=== PATIENT | male | born 1985 | race Caucasian/White ===

== ENCOUNTER 2023-03-13 11:50 | Emergency (ER) | payer OTHER, SELFPAY ==
[2023-03-13 12:55] LABS: Absolute Lymphocytes (CBC) 1.3 K/uL (0.7-4.9); Hematocrit 46.3 % (39.6-49.0); Lymphocytes % 21.9 % (15.3-44.8); MCV 90.4 fL (80-100); MPV 9.3 fL (7.6-11.3); RBC Red Blood Cell Count 5.12 M/uL (4.33-5.43)
[2023-03-13 13:19] LABS: Albumin 4.3 g/dL (3.4-5.0); Bilirubin Total 0.6 mg/dL (0.2-1.0); Protein, Total 8.2 g/dL (6.4-8.2); Thyroid Stimulating Hormone 0.815 uIU/mL (0.358-3.740); Troponin High Sensitivity 4.2 pg/mL (<58.9)
--- NOTE | 2023-03-13 13:33 | EDPHYS ---
Physician Documentation [facility] Name: Osito Zaomrano Age: 37 yrs Sex: Male : 1985 Arrival Date: 03/13/2023 Time: 11:50 Bed 12 Private MD: ED Physician Pietro Subramanian HPI: 03/13 12:16 This 37 yrs old Male presents to ER via Ambulatory with complaints of Passed bs3 Out Prior To Arrival, Irregular heartbeat. 12:16 37-year-old male no past medical history presents after an episode of syncope at work bs3 he was standing and passed out he went to [place] where they found him to have an irregular heart beat they did not do anything did not get an EKG and told him to come here he denies any chest pain shortness of breath or anything else bothering him, he does note drinking approximately 10 drinks on Sunday. . Historical: - Allergies: 12:29 No Known Allergies; vg1 - Home Meds: 12:29 None [Active]; vg1 - PMHx: 12:29 None; vg1 - PSHx: 12:29 None; vg1 - Immunization history:: Client reports having NOT received the Covid vaccine. - Social history:: Smoking status: Patient denies any tobacco usage or history of. ROS: 12:16 Constitutional: Negative for fever, chills bs3 12:16 All other systems are negative. Exam: 12:16 Constitutional: This is a well developed, well nourished patient who is awake, alert, bs3 and in no acute distress. Head/Face: Normocephalic, atraumatic. Eyes: Pupils equal round and reactive to light, extra-ocular motions intact. Lids and lashes normal. ENT: mmm, no posterior phyarngeal erythema Neck: Trachea midline, no thyromegaly, no neck stiffness Chest/axilla: Normal chest wall appearance and motion. Nontender with no deformity. No lesions are appreciated. Cardiovascular: Irregularly irregular no murmur Respiratory: Lungs have equal breath sounds bilaterally, clear to auscultation, no respiratory distress Abdomen/GI: Soft, non-tender, no rebound or guarding Skin: Warm, dry with normal turgor. Normal color with no rashes, no lesions, and no evidence of cellulitis. MS/ Extremity: Pulses equal, no cyanosis. Neurovascular intact. Full, normal range of motion. Neuro: Awake and alert, GCS 15, oriented to person, place, time, and situation. Cranial nerves II-XII grossly intact. Motor strength 5/5 in all extremities. Sensory grossly intact. Psych: Awake, alert, with orientation to person, place and time. Behavior, mood, and affect are within normal limits. 12:54 Normal sinus rhythm with frequent PVC as interpreted by myself bs3 Vital Signs: 12:26 BP 151 / 78; Pulse 43; Resp 16; Temp 98.5(O); Pulse Ox 97% on R/A; Weight 108.86 kg; vg1 Height 6 ft. 0 in. ; 14:18 BP 122 / 75; Pulse 68; Resp 17; Pulse Ox 100% ; ap3 12:26 Body Mass Index 32.55 (108.86 kg, 182.88 cm) vg1 MDM: 12:00 Patient medically screened. bs3 12:16 Data reviewed: vital signs, nurses notes. ED course: Patient with irregular heart beat bs3 in the setting of syncope will place on monitor we will get labs possible holiday heart if in A-fib [id number] 0. 13:22 ED course: labs neg for acute pathology, pt with symptomatic vent bigeminy, will start bs3 on metoprolol, f/u with cardiology. 13:24 ED course: tele shows ventricular trigeminy at 1:24p. bs3 03/13 12:13 Order name: CBC with Diff; Complete Time: 13:11 bs3 03/13 12:13 Order name: Comprehensive Metabolic Panel; Complete Time: 13:19 bs3 03/13 12:13 Order name: TSH; Complete Time: 13:19 bs3 03/13 12:13 Order name: Troponin High Sensitivity; Complete Time: 13:19 bs3 03/13 12:01 Order name: EKG - Nurse/Tech; Complete Time: 12:35 bs3 03/13 12:13 Order name: Cardiac monitoring; Complete Time: 12:49 bs3 Administered Medications: No medications were administered Disposition Summary: 03/13/23 13:32 Discharge Ordered Location: Home bs3 Problem: new bs3 Symptoms: are unchanged bs3 Condition: Stable bs3 Diagnosis - Ventricular premature depolarization bs3 - Syncope Near bs3 Followup: bs3 - With: Dionicio Willams MD - When: 1 - 2 days - Reason: Re-evaluation by your physician Discharge Instructions: - Discharge Summary Sheet bs3 - Premature Ventricular Contraction bs3 Forms: - Medication Reconciliation Form bs3 - Thank You Letter bs3 - Antibiotic Education bs3 - Prescription Opioid Use bs3 Prescriptions: - Toprol XL 25 mg Oral Tablet - take 1 tablet by ORAL route once daily; 20 tablet; Refills: 0, Product bs3 Selection Permitted Signatures: Dispatcher [employer] Radha Martinez, RN RN vg1 Pietro Subramanian MD MD bs3
--- NOTE | 2023-03-13 13:33 | ER ---
Nurse's Notes [facility] Name: Osito Zamorano Age: 37 yrs Sex: Male : 1985 Arrival Date: 03/13/2023 Time: 11:50 Bed 12 Private MD: Diagnosis: Ventricular premature depolarization;Syncope Near Presentation: 03/13 12:26 Chief complaint: Spouse and/or significant other states: walking and fell at work, vg1 stated fell forward and caught self, denies hitting head. Feels weak, dizzy, lightheaded. Coronavirus screen: Vaccine status: Patient reports being unvaccinated. Client denies travel out of the [place] in the last 14 days. Ebola Screen: Patient negative for fever greater than or equal to 101.5 degrees Fahrenheit, and additional compatible Ebola Virus Disease symptoms Patient denies exposure to infectious person. Patient denies travel to an Ebola-affected area in the 21 days before illness onset. Initial Sepsis Screen: Does the patient meet any 2 criteria? No. Patient's initial sepsis screen is negative. Does the patient have a suspected source of infection? No. Patient's initial sepsis screen is negative. Risk Assessment: Do you want to hurt yourself or someone else? Patient reports no desire to harm self or others. Onset of symptoms was March 13, 2023. 12:26 Method Of Arrival: Ambulatory vg1 12:26 Acuity: FRANCISCO 3 vg1 Triage Assessment: 12:29 General: Appears uncomfortable, Behavior is cooperative. Pain: Denies pain. Neuro: vg1 Level of Consciousness is awake, alert, obeys commands, Oriented to person, place, time, situation. Cardiovascular: Reports fatigue, lightheadedness, palpitations, syncope, Denies chest pain, Patient's skin is warm and dry. Historical: - Allergies: 12:29 No Known Allergies; vg1 - Home Meds: 12:29 None [Active]; vg1 - PMHx: 12:29 None; vg1 - PSHx: 12:29 None; vg1 - Immunization history:: Client reports having NOT received the Covid vaccine. - Social history:: Smoking status: Patient denies any tobacco usage or history of. Screenin:50 [facility] ED Fall Risk Assessment (Adult) History of falling in the last 3 months, ap3 including since admission No falls in past 3 months (0 pts). Abuse screen: Denies threats or abuse. Nutritional screening: No deficits noted. Tuberculosis screening: No symptoms or risk factors identified. Assessment: 12:49 General: Appears in no apparent distress. Behavior is calm, cooperative, appropriate ap3 for age. Pain: Denies pain. Neuro: Level of Consciousness is awake, alert, obeys commands, Oriented to person, place, time, situation, Reports a syncopal episode [employer]. Cardiovascular: Patient's skin is warm and dry. Rhythm is sinus rhythm w/ PVCs. Vital Signs: 12:26 BP 151 / 78; Pulse 43; Resp 16; Temp 98.5(O); Pulse Ox 97% on R/A; Weight 108.86 kg; vg1 Height 6 ft. 0 in. ; 14:18 BP 122 / 75; Pulse 68; Resp 17; Pulse Ox 100% ; ap3 12:26 Body Mass Index 32.55 (108.86 kg, 182.88 cm) vg1 ED Course: 11:53 Patient arrived in ED. rg4 12:00 Pietro Subramanian MD is Attending Physician. bs3 12:29 Triage completed. vg1 12:29 Arm band placed on. vg1 12:36 EKG done, by ED staff, reviewed by Pietro Subramanian MD. ap3 12:49 Tricia Rees, CAROLIN is Primary Nurse. ap3 12:49 Initial lab(s) drawn, by pa, sent to lab. Inserted saline lock: 20 gauge in right ap3 antecubital area, using aseptic technique. Blood collected. 13:31 Dionicio Willams MD is Referral Physician. bs3 14:17 No provider procedures requiring assistance completed. IV discontinued, intact, ap3 bleeding controlled, No redness/swelling at site. Pressure dressing applied. 14:19 Patient has correct armband on for positive identification. Call light in reach. Adult ap3 w/ patient. Administered Medications: No medications were administered Medication: 12:50 VIS not applicable for this client. ap3 Outcome: 13:32 Discharge ordered by . bs3 14:18 Discharged to home ambulatory, with family. ap3 14:18 Condition: good 14:18 Discharge instructions given to patient, family, Instructed on discharge instructions, follow up and referral plans. medication usage, Demonstrated understanding of instructions, follow-up care, medications, Prescriptions given X 1. 14:19 Patient left the ED. ap3 Signatures: Delmy Mckenna Amanda, RN RN ap3 Radha Mckenna RN RN vg1 Pietro Subramanian MD MD bs3
[2023-03-13 14:37] VITALS: TEMP 98.5
[2023-03-13 14:42] VITALS: BP 122/75; O2SAT 100
--- NOTE | 2023-03-14 14:09 | EKG ---
Test Date: 2023-03-13 Test Time: 12:33:57 Chief Commercial Officer: ALP MEASUREMENT RESULTS: Intervals: Rate: 66 DC: 156 QRSD: 92 QT: 388 QTc: 406 [place]: P: 20 DC: 156 QRS: 89 T: 56 INTERPRETIVE STATEMENTS: Sinus rhythm with premature supraventricular complexes and with occasional premature ventricular complexes Otherwise normal ECG No previous ECG available for comparison Electronically Signed On 03-14-23 14:07:03 CDT by Dionicio Willams
== END 2023-03-13 14:19 | disposition home or self-care (01) ==
LOC: ER 11:50
DX: I49.3 Ventricular premature depolarization (principal)
CPT/HCPCS: 36415; 80053; 84443; 84484; 85025; 93005; 99284